=== PATIENT | male | born 1950 | race Caucasian/White ===

== ENCOUNTER 2019-10-26 07:59 | Day surgery (SDC) | payer OTHER ==
--- OUTSIDE RECORDS SUMMARY | 2019-10-26 08:02 | XMS REPORT | Clinical Summary ---
:1950 Author Organization [facility] Address [address] [place] [id number] Care Team Providers Name Role Phone Elias Primary Care Provider Allergies No Known Allergies Medications Medication Sig Dispensed Refills Start Date End Date Status amLODIPine Take 10 mg by mouth 0 Active (NORVASC) 10 MG daily. tablet rosuvastatin Take 20 mg by mouth 0 Active (CRESTOR) 20 MG nightly. tablet losartan (COZAAR) Take 50 mg by mouth 0 Active 50 MG tablet daily. carvedilol (COREG) Take 3.125 mg by 0 Active 3.125 MG tablet mouth 2 (two) times daily with breakfast and dinner. tamsulosin (FLOMAX) Take 0.4 mg by mouth 0 Active 0.4 mg Cp24 24 hr nightly. capsule apixaban (ELIQUIS) Take 2.5 mg by mouth 0 Active 2.5 mg Tab tablet 2 (two) times daily. enoxaparin Inject 0.4 mLs (40 mg 7 Syringe 0 05/31/2016 Active (LOVENOX) 40 mg/0.4 total) subcutaneously mL Syrg daily. loratadine Take 10 mg by mouth 0 Active (CLARITIN) 10 mg daily as needed for tablet Allergies. multivitamin per Take 1 tablet by 0 Active tablet mouth daily. Active Problems Problem Noted Date Abdominal pain 06/05/2016 Hematuria 06/05/2016 Right renal mass 05/28/2016 Social History Tobacco Use Types Packs/Day Years Used Date Never Smoker Smokeless Tobacco: Never Used Alcohol Use Drinks/Week oz/Week Comments No Sex Assigned at Date Recorded Not on file Job Start Date Occupation Industry Not on file Not on file Not on file Travel History Travel Start Travel End No recent travel history available. Last Filed Vital Signs Not on file Plan of Treatment Not on file Results Not on fileafter 10/25/2018 Insurance Payer Benefit Plan / Group Subscriber ID Type Phone A ddress MEDICARE MEDICARE A B xxxxxxxxxx Medicare OTHER-COMMERCIAL GENERIC COMMERCIAL xxxxxxxxx Advance Directives For more information, please contact:[address] [phone] Code Status Date Activated Date Inactivated Comments Full Code 06/05/2016 1:34 AM 06/07/2016 10:11 PM This code status was determined by: Patient Full Code 05/28/2016 6:20 PM 05/31/2016 11:40 PM This code status was determined by: Patient
--- OUTSIDE RECORDS SUMMARY | 2019-10-26 08:02 | XMS REPORT | Clinical Summary ---
:1950 Author Organization [facility] Address [address] [place] [address] Care Team Providers Name Role Phone Huan Lipscomb MD Primary Care Provider Allergies No Known Allergies Medications Medication Sig Dispensed Refills Start Date End Date Status amLODIPine (NORVASC) 10 mg 0 04/08/2016 Active tablet apixaban (ELIQUIS) 2.5 mg Take by 0 Active tablet mouth. carvedilol (COREG) 3.125 Take 3.125 0 Active MG tablet mg by mouth. rosuvastatin (CRESTOR) 20 Take 20 mg 0 Active MG tablet by mouth. tamsulosin (FLOMAX) 0.4 mg Take by 0 Active capsule,extended release mouth. 24hr losartan (COZAAR) 50 MG Take 50 mg 0 Active tablet by mouth. hydroCHLOROthiazide Take 12.5 mg 0 Active (HYDRODIURIL) 12.5 MG by mouth tablet daily. aspirin (ECOTRIN) 81 MG Take 81 mg 0 Active enteric coated tablet by mouth daily. warfarin (COUMADIN) 7.5 MG 0 01/28/2016 Active tablet pantoprazole (PROTONIX) 40 Take 40 mg 0 Active MG EC tablet by mouth. XIIDRA 5 % dropperette 0 06/16/2018 Active oxybutynin XL (DITROPAN Take 1 90 tablet 3 08/04/201808/03 XL) 5 MG 24 hr tablet tablet (5 mg total) by mouth daily. Active Problems Problem Noted Date Malignant neoplasm of prostate 04/22/2017 Prostate cancer 04/07/2017 Cancer Staging: Pathologic stage from : pT2, pN0, cM0 - Signed by Pantera Funes MD on 05/16/2017 Encounters Date Type Specialty Care Team Description 09/11/2019 Telephone Urology Beatriz Perry MA 09/04/2019 Office Visit Urology Pantera Funes MD Prostate cancer (HCC) (Primary Dx) 09/04/2019 Travel 07/16/2019 Telephone Urology Pantera Funes MD after 10/25/2018 Social History Tobacco Use Types Packs/Day Years [...] Signs Not on file Plan of Treatment Date Type Specialty Care Team Description 09/02/2020 Office Visit Urology Pantera Funes MD [address] [facility] [address] [place], [place] [address] [phone] Health Maintenance Due Date Last Done Comments COLONOSCOPY SCREENING 08/01/1999 SHINGLES VACCINES (#1) 08/01/1999 65+ PNEUMOCOCCAL VACCINE (1 of 2 - PCV13) 2014 INFLUENZA VACCINE 12/06/2019 Implants Implanted Type Area Retanner Device Shelf Model / Identifier Expiration Serial / Date Lot Kit Selnt Fibrin Humn Hmsts Surgy 5ml Evicel - [id number] Surgica l N/A: N/A ETHICON US-EH [id number] / Implanted: Qty: 1 on 04/22/2017 by Pantera Funes MD at [facility] Implants; / Expanders; Extenders; Surgical Wires Tip Flxibl Selnt Fibrin Clog-Resistant 45cm Evicel - [id number] Surgical N/A: N/A ETHICON US-EH 09/04/2019 [id number] / Implanted: Qty: 1 on 04/22/2017 by Pantera Funes MD at [facility] Implants; / Expanders; [id number] Extenders; Surgical Wires Clip Ligtng Hem-O-Michele Endoscpc Aplr [facility] Lg - [id number] Surgica l N/A: N/A WECK CLOSURE [id number] / Implanted: Qty: 3 on 04/22/2017 by Pantera Funes MD at [facility] Implants; SYSTEMS / Expanders; Extenders; Surgical Wires Procedures Procedure Name Priority Date/Time Associated Comments Diagnosis PSA, ULTRASENSITIVE Routine 09/04/2019 4:02 PM Prostate cance r Results for this CDT (HCC) procedure are i n the results section. after 10/25/2018 Results PSA, ultrasensitive (09/04/2019 4:02 PM CDT) PSA, ultrasensitive <0.014 0.000 - 4.000 [facility] Comment: ng/mL Gloria ECLIA methodology. According to the [employer], Seru m PSA should decrease and remain at undetectable levels after radic al prostatectomy. The AUA defines biochemical recurrence as an initial PSA value 0.200 ng/mL or greater followed by a subsequ ent confirmatory PSA value 0.200 ng/mL or greater. Values obtained with different assay methods or kits c annot be used interchangeably. Results cannot be interpreted as abso lute evidence of the presence or absence of malignant disease. Specimen Blood Narrative Performed At Performed at: 01 - [facility] [address], [place] [id number] 143 Corporate Travel Consultant: Petros Reno MD, Phone: [phone] Performing Organization Address City/State/Zipcode Phone Number [facility] after 10/25/2018 Insurance Payer Benefit Plan / Subscriber ID Effective Phone Address T ype Group Dates MEDICARE MEDICARE PART A xxxxxxxxxxx 2014-[place], [place] Medicare AND B ent COMMERCIAL MISC MISC COMMERCIAL [id number] 2016-[facility] Commercial ent (Home) [id number] [place] [address] Advance Directives For more information, please contact: [phone] Type Date 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
--- OUTSIDE RECORDS SUMMARY | 2019-10-26 08:04 | XMS REPORT | Continuity of Care Document ---
:1950 Author Organization [facility] t Address [address] [place] [address] Care Team Providers Name Role Phone Jeremiah Lipscomb MD. Primary Care Physician Doctor Unassigned, Name Attending Clinician Unavailable Orlando WOODSON Attending Clinician Unavailable Fabiola GUILLEN, J. Attending Clinician Mack GUILLEN Attending Clinician BARRY RAMOS Attending Clinician Unavailable CONI ALARCON Attending Clinician Unavailable FARA ANN Admitting Clinician Unavailable LINKCONI Admitting Clinician Unavailable Payers Payer Name Policy Policy Number Effective Expiration Source Type Date Date MEDICAREMEDICARE PART xxxxxxxxxxx 2014 Taiwo claude Pandya AND 00:00:00 [facility]xxx[facility] [place] [facility] [place] COMMERCIAL MISCMISC [id number] 2016 [place] JPAIDHKUZAaoj-fj-cosy 00:00:00 Met nielsen 2016-Ryan rcial Problems Condition Condition Condition Status Onset Resolution Last Treating Co mments Source Name Details Category Date Date Treatment Clinician Date Malignant Malignant Disease Active Francoise ston neoplasm neoplasm 04-22 [facility] of of 00:00: st prostate prostate 00 Prostate Prostate Disease Active [place] [facility] cancer 2 [facility] 00[facility]: st 00 Abdominal Abdominal Disease Active [facility] Hematuria Hematuria Disease Active [facility] [place] Right Right Disease Active [facility] renal mass renal mass 3- [facility] - 00:00: Medical 00 [place] Allergies, Adverse Reactions, Alerts This patient has no known allergies or adverse reactions. Social History Social Habit Start Date Stop Date Quantity Comments Source Sex Assigned At [facility] Alcohol intake 2018-08-24 2018-08-24 Current [facility] thodist 00:00:00 00:00:00 non-drinker of alcohol (finding) Smoking Status Start Date Stop Date Source Never smoker [facility] Medications Ordered Filled Start Stop Current Ordering Indication Dosage Frequency Signature Comments Components Source Medication Medication Date Date Medication? Clinician (SIG) Name Name apixaban Yes Take by [place] (ELIQUIS) 6-20 mouth. [facility]i 2.5 mg 10:52: st tablet 23 carvedilol Yes 3.125mg Take 3.125 Ca (COREG) 6-20 mg by [facility] 3.125 MG 10:52: mouth. st tablet 23 rosuvastati Yes 20mg Take 20 mg Ca n (CRESTOR) 6-20 by mouth. Met hodi 20 MG 10:52: st tablet 23 tamsulosin Yes Take by [place] (FLOMAX) 6-20 mouth. [facility] 0.4 mg 10:52: st capsule,ext 23 ended release 24hr losartan Yes 50mg Take 50 mg Francoise ston (COZAAR) 50 6-20 by mouth. Met hodi MG tablet 10:52: st 23 hydroCHLORO Yes 12.5mg QD Take 12.5 Ca thiazide 6-20 mg by [facility] (HYDRODIURI 10:52: mouth st L) 12.5 MG 23 daily. tablet aspirin Yes 81mg QD Take 81 mg [place] (ECOTRIN) 6-20 by mouth Method i 81 MG 10:52: daily. st enteric 23 coated tablet pantoprazol Yes 40mg Take 40 mg Ca e 6-20 by mouth. [facility]i (PROTONIX) 10:52: st 40 MG EC 23 tablet oxybutynin 2020- No 5mg QD Take 1 [place] XL 5-31 05-30 tablet (5 [facility] (DITROPAN 00:00: 23:59 mg total) st XL) 5 MG 24 00 :00 by mouth hr tablet daily. XIIDRA 5 % Yes Ca dropperette 4-12 Methodi 00:00: st 00 loratadine Yes 10mg Take [address] (CLARITIN) 4- by mouth [facility] - 10 mg 02:12: daily as Medical tablet 49 needed for Center Allergies. multivitami Yes 1{tbl} QD Take [address] n per 06-05 tablet by [facility] - tablet 02:12: mouth Medical 49 daily. [place] enoxaparin Yes 40mg Q24H Inject 0.[address] (LOVENOX) 3-27 mLs (40 mg Luke s - 40 mg/0.4 00:00: total) Medica l mL Syrg 00 subcutaneo Center usly daily. losartan Yes 50mg QD Take [address] (COZAAR) 50 3-10 by mouth Luke s - MG tablet 10:39: daily. Medica l 10 [place] carvedilol Yes 3.125mg Take 3.[address] [facility] [address] (COREG) 3-10 mg by [facility] - 3.125 MG 10:39: mouth 2 Medica l tablet 10 (two) Center times daily with breakfast and dinner. tamsulosin Yes .4mg QD Take 0.[address] (FLOMAX) 3-10 mg by [facility] - 0.4 mg Cp24 10:39: mouth Medic al 24 hr 10 nightly. Center capsule apixaban Yes 2.5mg Q.5D Take 2.[address] (ELIQUIS) 3-10 mg by [facility] - 2.5 mg Tab 10:39: mouth 2 Medi kevon tablet 10 (two) Center times daily. rosuvastati Yes 20mg QD Take [address] n (CRESTOR) 3-10 by mouth Luke s - 20 MG 10:39: nightly. Medical tablet 09 [place] amLODIPine Yes 10mg QD Take [address] (NORVASC) 3-10 by mouth [facility] - 10 MG 10:35: daily. Medical tablet 15 [place] amLODIPine Yes Ca (NORVASC) 2-02 Methodi 10 mg 00:00: st tablet 00 warfarin 2015-03 Yes Ca (COUMADIN) 1-23 Methodi 7.5 MG 00:00: st tablet 00 Procedures Procedure Date / Time Performed Performing Clinician Josr an PSA, ULTRASENSITIVE 2019-09-04 16:02:00 Meghan Funes Plan of Care Planned Activity Planned Date Details Comments Source Future Scheduled 2019-12-06 INFLUENZA VACCINE [place] [facility] 00:00:00 [code = INFLUENZA VACCINE] Future Scheduled 2014 65+ PNEUMOCOCCAL [place] [facility] 00:00:00 VACCINE (1 of 2 - PCV13) [code = 65+ PNEUMOCOCCAL VACCINE (1 of 2 - PCV13)] Future Scheduled 1999-08-01 COLONOSCOPY SCREENING [facility] Test 00:00:00 [code = COLONOSCOPY SCREENING] Future Scheduled 1999-08-01 SHINGLES VACCINES (#1) [place] [facility] 00:00:00 [code = SHINGLES VACCINES (#1)] Encounters Start End Encounter Admission Attending Care Care Encounter Source Date/Time Date/Time Type Type Clinicians Facility Department ID 2019-09-11 2019-09-11 Orders Doctor HELTON [id number] 00:00:00 00:00:00 Only Unassigned, MANE [id number] [place] [id number] [id number] 2019-09-04 2019-09-04 Outpatient [facility] [id number] [address] [place] 00:00:00 00:00:00 MEGHAN Macdonald [facility] 2019-04-04 2019-04-04 Orders Doctor HELTON [id number] 00:00:00 00:00:00 Only UnassignedMANE [id number] [place] [facility] [id number] [id number] 2019-03-27 2019-03-27 Telephone CYNTHIA Giron [id number] 00:00:00 00:00:00 [facility] [id number] [place] [id number] Professio [id number] nal [address] 2018-09-20 2018-09-20 Orders Doctor HELTON [id number] 00:00:00 00:00:00 Only Unassigned, MANE [id number] [place] [facility] [id number] Results Test Description Test Time Test Comments Results Result Comments Source PSA, ultrasensitive 2019-09-05 10:10:00 Test Item Value Reference Range Interpretation Comme nts PSA, ultrasensitive (test <0.014 0-4 Ro eleazar ECLIA methodology.According code = 11336-8) to the [facility] Urological Association, Se rum PSA shoulddecrease and remain at undetectable le vels after radicalprostate ctomy. The AUA defines biochem ical recurrence as an initialPSA v alue 0.200 ng/mL or greater foll owed by a subsequentconfi rmatory PSA value 0.200 ng/mL or greater.Values obtained with d ifferent assay methods or kits cannot be usedinterchange ably. Results cannot be inter preted as absolute evidenceof the presence or absence of ezequiel gnant disease. SURENDRA (test code = SURENDRA) Performed at: [facility] [id number] Director: Petros Reno MD, Phone: [phone] [place] MethodistHEMOGLOBIN AND [id number] 07:06:00 Test Item Value Reference Range Interpretation Comments HEMOGLOBIN (BEAKER) (test code = 8.7 GM/DL 13.0-16.8 L 410) HEMATOCRIT (BEAKER) (test code = 26.5 % 40.0-50.0 L 411) BASIC METABOLIC [id number] 06:42:00 Test Item Value Reference Range Interpretation Comments SODIUM (BEAKER) 137 meq/L 136-145 (test code = 381) POTASSIUM (BEAKER) 3.4 meq/L 3.5-5.1 L (test code = 379) CHLORIDE (BEAKER) 106 meq/L 98-107 (test code = 382) CO2 (BEAKER) (test 22 meq/L 22-29 code = 355) BLOOD UREA NITROGEN 11 mg/dL 7-21 (BEAKER) (test code = 354) CREATININE (BEAKER) 1.27 mg/dL 0.57-1.25 H (test code = 358) GLUCOSE RANDOM 121 mg/dL 70-105 H (BEAKER) (test code = 652) CALCIUM (BEAKER) 8.1 mg/dL 8.4-10.2 L (test code = 697) EGFR (BEAKER) (test 57 mL/min/1.73 [place] GFR IS code = 1092) sq m NOT ACCURATE CREATININE CLEARANCE IN PREDICTING GLOMERULAR FILTRATION RATE . ESTIMATED GFR I S NOT APPLICABLE FOR DIALYSIS PATIEN TS. HEMOGLOBIN AND [id number] 17:34:00 Test Item Value Reference Range Interpretation Comments HEMOGLOBIN (BEAKER) (test code = 8.7 GM/DL 13.0-16.8 L 410) HEMATOCRIT (BEAKER) (test code = 24.8 % 40.0-50.0 L 411) URINE [id number] 13:17:00 Test Item Value Reference Range Interpretation Comments CULTURE (BEAKER) (test code = 1095) No growth BASIC METABOLIC [id number] 06:13:00 Test Item Value Reference Range Interpretation Comments SODIUM (BEAKER) 139 meq/L 136-145 (test code = 381) POTASSIUM (BEAKER) 3.9 meq/L 3.5-5.1 (test code = 379) CHLORIDE (BEAKER) 108 meq/L 98-107 H (test code = 382) CO2 (BEAKER) (test 24 meq/L 22-29 code = 355) BLOOD UREA NITROGEN 15 mg/dL 7-21 (BEAKER) (test code = 354) CREATININE (BEAKER) 1.79 mg/dL 0.57-1.25 H (test code = 358) GLUCOSE RANDOM 107 mg/dL 70-105 H (BEAKER) (test code = 652) CALCIUM (BEAKER) 8.1 mg/dL 8.4-10.2 L (test code = 697) EGFR (BEAKER) (test 38 mL/min/1.73 [place] GFR IS code = 1092) sq m NOT ACCURATE CREATININE CLEARANCE IN PREDICTING GLOMERULAR FILTRATION RATE . ESTIMATED GFR I S NOT APPLICABLE FOR DIALYSIS PATIEN TS. HEMOGLOBIN AND [id number] 05:55:00 Test Item Value Reference Range Interpretation Comments HEMOGLOBIN (BEAKER) (test code = 7.6 GM/DL 13.0-16.8 L 410) HEMATOCRIT (BEAKER) (test code = 22.5 % 40.0-50.0 L 411) HEMOGLOBIN AND [id number] 15:49:00 Test Item Value Reference Range Interpretation Comments HEMOGLOBIN (BEAKER) (test code = 8.3 GM/DL 13.0-16.8 L 410) HEMATOCRIT (BEAKER) (test code = 24.5 % 40.0-50.0 L 411) BLOOD [id number] 11:00:00 Test Item Value Reference Range Interpretation Comments CULTURE (BEAKER) (test No growth in 5 days code = 1095) BLOOD [id number] 11:00:00 Test Item Value Reference Range Interpretation Comments CULTURE (BEAKER) (test No growth in 5 days code = 1095) BASIC METABOLIC [id number] 07:19:00 Test Item Value Reference Range Interpretation Comments SODIUM (BEAKER) 142 meq/L 136-145 (test code = 381) POTASSIUM (BEAKER) 3.6 meq/L 3.5-5.1 (test code = 379) CHLORIDE (BEAKER) 108 meq/L 98-107 H (test code = 382) CO2 (BEAKER) (test 24 meq/L 22-29 code = 355) BLOOD UREA NITROGEN 13 mg/dL 7-21 (BEAKER) (test code = 354) CREATININE (BEAKER) 1.30 mg/dL 0.57-1.25 H (test code = 358) GLUCOSE RANDOM 104 mg/dL 70-105 (BEAKER) (test code = 652) CALCIUM (BEAKER) 8.3 mg/dL 8.4-10.2 L (test code = 697) EGFR (BEAKER) (test 55 mL/min/1.73 [place] GFR IS code = 1092) sq m NOT ACCURATE CREATININE CLEARANCE IN PREDICTING GLOMERULAR FILTRATION RATE . ESTIMATED GFR I S NOT APPLICABLE FOR DIALYSIS PATIEN TS. [id number] 07:14:00 Test Item Value Reference Range Interpretation Comments PARTIAL THROMBOPLASTIN TIME 45.4 seconds 22.5-36.0 H (BEAKER) (test code = 760) HEMOGLOBIN AND [id number] 07:14:00 Test Item Value Reference Range Interpretation Comments HEMOGLOBIN (BEAKER) (test code = 8.0 GM/DL 13.0-16.8 L 410) HEMATOCRIT (BEAKER) (test code = 23.3 % 40.0-50.0 L 411) URINALYSIS W/ [id number] 01:39:00 Test Item Value Reference Range Interpretation Comments COLOR (BEAKER) (test code Red = 470) CLARITY (BEAKER) (test Cloudy code = 469) SPECIFIC GRAVITY UA 1.008 1.001-1.035 (BEAKER) (test code = 468) PH UA (BEAKER) (test code 7.5 5.0-8.0 = 467) PROTEIN UA (BEAKER) (test 300 mg/dL Negative A code = 464) GLUCOSE UA (BEAKER) (test Negative Negative code = 365) KETONES UA (BEAKER) (test Negative Negative code = 371) BILIRUBIN UA (BEAKER) Negative Negative (test code = 462) BLOOD UA (BEAKER) (test Large Negative A code = 461) NITRITE UA (BEAKER) (test Negative Negative code = 465) LEUKOCYTE ESTERASE UA Negative Negative (BEAKER) (test code = 466) UROBILINOGEN UA (BEAKER) 0.2 mg/dL 0.2-1.0 (test code = 463) RBC UA (BEAKER) (test code > /HPF = 519) WBC UA (BEAKER) (test code 111 /HPF = 520) SOURCE(BEAKER) (test code Urine, Clean Catch = 0422) EXTREMELY BLOODY SPECIMENBASIC METABOLIC [id number] 00:32:00 Test Item Value Reference Range Interpretation Comments SODIUM (BEAKER) 140 meq/L 136-145 (test code = 381) POTASSIUM (BEAKER) 4.0 meq/L 3.5-5.1 Specimen slightly (test code = 379) hemolyzed CHLORIDE (BEAKER) 104 meq/L 98-107 (test code = 382) CO2 (BEAKER) (test 21 meq/L 22-29 L code = 355) BLOOD UREA NITROGEN 14 mg/dL 7-21 (BEAKER) (test code = 354) CREATININE (BEAKER) 1.44 mg/dL 0.57-1.25 H Specimen slightly (test code = 358) hemolyzed GLUCOSE RANDOM 113 mg/dL 70-105 H (BEAKER) (test code = 652) CALCIUM (BEAKER) 8.7 mg/dL 8.4-10.2 (test code = 697) EGFR (BEAKER) (test 49 mL/min/1.73 [place] GFR IS code = 1092) sq m NOT ACCURATE CREATININE CLEARANCE IN PREDICTING GLOMERULAR FILTRATION RATE . ESTIMATED GFR I S NOT APPLICABLE FOR DIALYSIS PATIEN TS. [id number] 00:27:00 Test Item Value Reference Range Interpretation Comments PARTIAL THROMBOPLASTIN TIME 39.7 seconds 22.5-36.0 H (BEAKER) (test code = 760) PROTHROMBIN [id number] 00:26:00 Test Item Value Reference Range Interpretation Comments PROTIME (BEAKER) (test code = 13.7 seconds 11.7-14.7 759) INR (BEAKER) (test code = 370) 1.1 <=5.9 RECOMMENDED COUMADIN/WARFARIN INR THERAPY RANGESSTANDARD DOSE: 2.0 - 3.0 Includes: PROPHYLAXIS forvenous thrombosis, systemic embolization; TREATMENT for venous thrombosis and/or pulmonary embolus.HIGH RISK: Target INR is 2.5-3.5 for patients with mechanical heart valves.CBC W/PLT COUNT & AUTO DIFFERENTIAL 2016-06-05 00:19:00 Test Item Value Reference Range Interpretation Comments WHITE BLOOD CELL COUNT (BEAKER) 7.9 K/ L 4.0-10.0 (test code = 775) RED BLOOD CELL COUNT (BEAKER) 3.36 M/ L 4.20-5.80 L (test code = 761) HEMOGLOBIN (BEAKER) (test code = 9.8 GM/DL 13.0-16.8 L 410) HEMATOCRIT (BEAKER) (test code = 29.0 % 40.0-50.0 L 411) MEAN CORPUSCULAR VOLUME (BEAKER) 86.3 fL 82.0-98.0 (test code = 753) MEAN CORPUSCULAR HEMOGLOBIN 29.2 pg 27.0-33.0 (BEAKER) (test code = 751) MEAN CORPUSCULAR HEMOGLOBIN CONC 33.8 GM/DL 32.0-36.0 (BEAKER) (test code = 752) RED CELL DISTRIBUTION WIDTH 12.7 % 10.3-14.2 (BEAKER) (test code = 412) PLATELET COUNT (BEAKER) (test 392 K/CU MM 150-430 code = 756) MEAN PLATELET VOLUME (BEAKER) 6.9 fL 6.5-10.5 (test code = 754) NUCLEATED RED BLOOD CELLS 0 /100 WBC 0-0 (BEAKER) (test code = 413) NEUTROPHILS RELATIVE PERCENT 74 % (BEAKER) (test code = 429) LYMPHOCYTES RELATIVE PERCENT 14 % (BEAKER) (test code = 430) MONOCYTES RELATIVE PERCENT 7 % (BEAKER) (test code = 431) EOSINOPHILS RELATIVE PERCENT 5 % (BEAKER) (test code = 432) BASOPHILS RELATIVE PERCENT 0 % (BEAKER) (test code = 437) NEUTROPHILS ABSOLUTE COUNT 5.85 K/ L 1.80-8.00 (BEAKER) (test code = 670) LYMPHOCYTES ABSOLUTE COUNT 1.13 K/ L 1.48-4.50 L (BEAKER) (test code = 414) MONOCYTES ABSOLUTE COUNT (BEAKER) 0.52 K/ L 0.00-1.30 (test code = 415) EOSINOPHILS ABSOLUTE COUNT 0.38 K/ L 0.00-0.50 (BEAKER) (test code = 416) BASOPHILS ABSOLUTE COUNT (BEAKER) 0.02 K/ L 0.00-0.20 (test code = 417) 0.00URINE [id number] 10:01:00 Test Item Value Reference Interpretation Comments Range CULTURE (BEAKER) (test ENTEROBACTER A 20-29 ,000 col/mL code = 1095) AEROGENES Enterobacter aerogenes Amikacin (test code = S 1) Aztreonam (test code = R 32) Cefepime (test code = S 51) Cefoxitin (test code = R 68) Ceftazidime (test code R = 27) Ceftriaxone (test code R = 52) Ertapenem (test code = S 38) Gentamicin (test code S = 18) Levofloxacin (test S code = 22) Meropenem (test code = S 34) Nitrofurantoin (test R code = 23) Piperacillin + R Tazobactam (test code = 29) Tetracycline (test R code = 2) Tobramycin (test code S = 25) Trimethoprim + S Sulfamethoxazole (test code = 47) TISSUE [id number] 13:16:00Surgical Pathology Report Case: [id number] --- Authorizing Provider: Meño Alarcon MD Ordering Provider: Meño Alarcon MD [facility] Collected: 05/28/2016 1124 SERVICES Pathologist: Emiliano Dumont MD Received: 05/28/2016 1128 Specimens: A) - Soft Tissue, Other, biopsy base of tumor resection B) - Mass,right renal mass A. SOFT TISSUE, BASE OF TUMOR RESECTION, BIOPSY: - NEGATIVE FOR CARCINOMAB. KIDNEY, PARTIAL NEPHRECTOMY: - RENAL CELL CARCINOMA, CLEAR CELL TYPE, SHAYNE NUCLEAR GRADE 3 OF 4, 5 CM IN GREATEST DIMENSION, LIMITED TO KIDNEY - SURGICAL RESECTION MARGINS, NEGATIVE FOR TUMOR - NEGATIVE FOR LYMPHOVASCULAR INVASION - AJCC CLASSIFICATION (7TH EDITION) pT1b, Nx, Mx (SEE SYNOPTIC REPORT) Signing Pathologist Direct Phone Line: [phone] is within 0.1 cm from the capsular resection margin.KIDNEY: Nephrectomy,Partial or RadicalKidney Res Specimen Site: Kidney structureSPECIMEN Procedure: Partial nephrectomy Specimen Laterality: Right Tumor Site: Upper pole Tumor Focality: Unifocal MacroscopicExtent of Tumor: Tumor limited to kidneyTUMOR Histologic Type: Clear cell renal cell carcinomaSarcomatoid Features: Not identified Histologic Grade (Shayne Nuclear Grade): G3: Nuclei veryirregular, approximately 20 microns; nucleoli large and prominentEXTENT Tumor Size (largest tumor ifmultiple): Greatest dimension (cm): 5 Additional Dimension (cm): 4 Additional Dimension (cm): 3 Microscopic Tumor Extension: Tumor limited to kidneyMARGINS Margin Status: Margins uninvolved by invasive carcinomaACCESSORY FINDINGS Tumor Necrosis (any amount): Not identified Lymph-Vascular Invasion: Not identifiedSTAGE (pTNM) TNM Descriptors: Not applicable Primary Tumor (pT): pT1b: Tumor more than 4 cm but not more than 7 cm in greatest dimension, limited to the kidney Regional Lymph Nodes (pN): pNX: Regional lymph nodes cannot be assessed Status of Regional LymphNodes: No nodes submitted or found Distant Metastasis (pM): Not applicableADDITIONAL NON-TUMORPathologic Findings in Nonneoplastic Kidney: Insufficient tissue (partial nephrectomy specimen with <5 mm of adjacent non-neoplastic kidney)30489, [id number], 62884Hdawx renal massA. Soft tissue, biopsy base of tumor resectionB. Right renal massPart A: The specimen is received fresh for frozen labeled with the patient's name and accession number as "soft tissue" is a 0.6 x 0.5 x 0.2 cm [place]-pink softtissue. The specimen is submitted totally in cassette A1. SM/plPart B: The specimen is received in aformalin-filled container labeled with the patient's information and labeled "right renal mass" and consists of a 40 gm partial nephrectomy measuring 5 x 4 x 3 cm. The attached fat measures 5.2 x 4 x 1cm.Ink code: adipose tissue-black, remainder of kidney-blue.The specimen is serially sectioned. Cross sectioning of nephrectomy shows complete replacement of the kidney parenchyma with a null-yellow,hemorrhagic, multinodular tumor. The mass is grossly confined within the capsule and does not invadeinto the surrounding fat. Grossly no distinct viable kidney parenchyma is seen.Section code: B1-B3, r epresentative tumor and adjacent adipose tissue; B4-B6, account development representative tumor and capsule without adipose tissue. CG/ewBIOPSY BASE OF TUMOR RESECTION: A1FS: NEGATIVE FOR CARCINOMATHE RESULTS WERE REPORTED BY DR. DUMONT TO DR. ALARCON AT 11:47 A.M.A and B. Performed.CBC W/PLT COUNT & AUTO [id number] 13:52:00 Test Item Value Reference Range Interpretation Comments WHITE BLOOD CELL COUNT (BEAKER) 10.4 K/ L 4.0-10.0 H (test code = 775) RED BLOOD CELL COUNT (BEAKER) 3.13 M/ L 4.20-5.80 L (test code = 761) HEMOGLOBIN (BEAKER) (test code = 9.1 GM/DL 13.0-16.8 L 410) HEMATOCRIT (BEAKER) (test code = 27.3 % 40.0-50.0 L 411) MEAN CORPUSCULAR VOLUME (BEAKER) 87.4 fL 82.0-98.0 (test code = 753) MEAN CORPUSCULAR HEMOGLOBIN 29.2 pg 27.0-33.0 (BEAKER) (test code = 751) MEAN CORPUSCULAR HEMOGLOBIN CONC 33.4 GM/DL 32.0-36.0 (BEAKER) (test code = 752) RED CELL DISTRIBUTION WIDTH 13.4 % 10.3-14.2 (BEAKER) (test code = 412) PLATELET COUNT (BEAKER) (test 229 K/CU MM 150-430 code = 756) MEAN PLATELET VOLUME (BEAKER) 7.6 fL 6.5-10.5 (test code = 754) NUCLEATED RED BLOOD CELLS 0 /100 WBC 0-0 (BEAKER) (test code = 413) NEUTROPHILS RELATIVE PERCENT 83 % (BEAKER) (test code = 429) LYMPHOCYTES RELATIVE PERCENT 9 % (BEAKER) (test code = 430) MONOCYTES RELATIVE PERCENT 6 % (BEAKER) (test code = 431) EOSINOPHILS RELATIVE PERCENT 1 % (BEAKER) (test code = 432) BASOPHILS RELATIVE PERCENT 0 % (BEAKER) (test code = 437) NEUTROPHILS ABSOLUTE COUNT 8.67 K/ L 1.80-8.00 H (BEAKER) (test code = 670) LYMPHOCYTES ABSOLUTE COUNT 0.95 K/ L 1.48-4.50 L (BEAKER) (test code = 414) MONOCYTES ABSOLUTE COUNT (BEAKER) 0.61 K/ L 0.00-1.30 (test code = 415) EOSINOPHILS ABSOLUTE COUNT 0.15 K/ L 0.00-0.50 (BEAKER) (test code = 416) BASOPHILS ABSOLUTE COUNT (BEAKER) 0.02 K/ L 0.00-0.20 (test code = 417) 0.00CBC W/PLT COUNT & AUTO [id number] 05:52:00 Test Item Value Reference Range Interpretation Comments WHITE BLOOD CELL COUNT (BEAKER) 9.3 K/ L 4.0-10.0 (test code = 775) RED BLOOD CELL COUNT (BEAKER) 2.77 M/ L 4.20-5.80 L (test code = 761) HEMOGLOBIN (BEAKER) (test code = 8.4 GM/DL 13.0-16.8 L 410) HEMATOCRIT (BEAKER) (test code = 24.0 % 40.0-50.0 L 411) MEAN CORPUSCULAR VOLUME (BEAKER) 86.7 fL 82.0-98.0 (test code = 753) MEAN CORPUSCULAR HEMOGLOBIN 30.2 pg 27.0-33.0 (BEAKER) (test code = 751) MEAN CORPUSCULAR HEMOGLOBIN CONC 34.8 GM/DL 32.0-36.0 (BEAKER) (test code = 752) RED CELL DISTRIBUTION WIDTH 13.3 % 10.3-14.2 (BEAKER) (test code = 412) PLATELET COUNT (BEAKER) (test 171 K/CU MM 150-430 code = 756) MEAN PLATELET VOLUME (BEAKER) 7.4 fL 6.5-10.5 (test code = 754) NUCLEATED RED BLOOD CELLS 0 /100 WBC 0-0 (BEAKER) (test code = 413) NEUTROPHILS RELATIVE PERCENT 80 % (BEAKER) (test code = 429) LYMPHOCYTES RELATIVE PERCENT 11 % (BEAKER) (test code = 430) MONOCYTES RELATIVE PERCENT 8 % (BEAKER) (test code = 431) EOSINOPHILS RELATIVE PERCENT 1 % (BEAKER) (test code = 432) BASOPHILS RELATIVE PERCENT 0 % (BEAKER) (test code = 437) NEUTROPHILS ABSOLUTE COUNT 7.37 K/ L 1.80-8.00 (BEAKER) (test code = 670) LYMPHOCYTES ABSOLUTE COUNT 1.02 K/ L 1.48-4.50 L (BEAKER) (test code = 414) MONOCYTES ABSOLUTE COUNT (BEAKER) 0.74 K/ L 0.00-1.30 (test code = 415) EOSINOPHILS ABSOLUTE COUNT 0.12 K/ L 0.00-0.50 (BEAKER) (test code = 416) BASOPHILS ABSOLUTE COUNT (BEAKER) 0.02 K/ L 0.00-0.20 (test code = 417) 0.00BASIC METABOLIC [id number] 05:37:00 Test Item Value Reference Range Interpretation Comments SODIUM (BEAKER) 137 meq/L 136-145 (test code = 381) POTASSIUM (BEAKER) 3.7 meq/L 3.5-5.1 (test code = 379) CHLORIDE (BEAKER) 106 meq/L 98-107 (test code = 382) CO2 (BEAKER) (test 24 meq/L 22-29 code = 355) BLOOD UREA NITROGEN 15 mg/dL 7-21 (BEAKER) (test code = 354) CREATININE (BEAKER) 1.20 mg/dL 0.57-1.25 (test code = 358) GLUCOSE RANDOM 113 mg/dL 70-105 H (BEAKER) (test code = 652) CALCIUM (BEAKER) 7.9 mg/dL 8.4-10.2 L (test code = 697) EGFR (BEAKER) (test 61 mL/min/1.73 [place] [place] GFR IS code = 1092) sq m NOT ACCURATE CREATININE CLEARANCE IN PREDICTING GLOMERULAR FILTRATION RATE . ESTIMATED GFR I S NOT APPLICABLE FOR DIALYSIS PATIEN TS. BASIC METABOLIC [id number] 09:00:00 Test Item Value Reference Range Interpretation Comments SODIUM (BEAKER) 136 meq/L 136-145 (test code = 381) POTASSIUM (BEAKER) 3.8 meq/L 3.5-5.1 (test code = 379) CHLORIDE (BEAKER) 106 meq/L 98-107 (test code = 382) CO2 (BEAKER) (test 21 meq/L 22-29 L code = 355) BLOOD UREA NITROGEN 16 mg/dL 7-21 (BEAKER) (test code = 354) CREATININE (BEAKER) 1.24 mg/dL 0.57-1.25 (test code = 358) GLUCOSE RANDOM 115 mg/dL 70-105 H (BEAKER) (test code = 652) CALCIUM (BEAKER) 8.2 mg/dL 8.4-10.2 L (test code = 697) EGFR (BEAKER) (test 58 mL/min/1.73 [facility]IM[facility] [place] GFR IS code = 1092) sq m NOT ACCURATE CREATININE CLEARANCE IN PREDICTING GLOMERULAR FILTRATION RATE . ESTIMATED GFR I S NOT APPLICABLE FOR DIALYSIS PATIEN TS. CBC W/PLT COUNT & AUTO [id number] 08:56:00 Test Item Value Reference Range Interpretation Comments WHITE BLOOD CELL COUNT (BEAKER) 12.1 K/ L 4.0-10.0 H (test code = 775) RED BLOOD CELL COUNT (BEAKER) 3.08 M/ L 4.20-5.80 L (test code = 761) HEMOGLOBIN (BEAKER) (test code = 9.0 GM/DL 13.0-16.8 L 410) HEMATOCRIT (BEAKER) (test code = 26.9 % 40.0-50.0 L 411) MEAN CORPUSCULAR VOLUME (BEAKER) 87.2 fL 82.0-98.0 (test code = 753) MEAN CORPUSCULAR HEMOGLOBIN 29.2 pg 27.0-33.0 (BEAKER) (test code = 751) MEAN CORPUSCULAR HEMOGLOBIN CONC 33.4 GM/DL 32.0-36.0 (BEAKER) (test code = 752) RED CELL DISTRIBUTION WIDTH 12.8 % 10.3-14.2 (BEAKER) (test code = 412) PLATELET COUNT (BEAKER) (test 172 K/CU MM 150-430 code = 756) MEAN PLATELET VOLUME (BEAKER) 8.1 fL 6.5-10.5 (test code = 754) NUCLEATED RED BLOOD CELLS 0 /100 WBC 0-0 (BEAKER) (test code = 413) NEUTROPHILS RELATIVE PERCENT 84 % (BEAKER) (test code = 429) LYMPHOCYTES RELATIVE PERCENT 8 % (BEAKER) (test code = 430) MONOCYTES RELATIVE PERCENT 7 % (BEAKER) (test code = 431) EOSINOPHILS RELATIVE PERCENT 1 % (BEAKER) (test code = 432) BASOPHILS RELATIVE PERCENT 0 % (BEAKER) (test code = 437) NEUTROPHILS ABSOLUTE COUNT 10.20 K/ L 1.80-8.00 H (BEAKER) (test code = 670) LYMPHOCYTES ABSOLUTE COUNT 0.93 K/ L 1.48-4.50 L (BEAKER) (test code = 414) MONOCYTES ABSOLUTE COUNT (BEAKER) 0.89 K/ L 0.00-1.30 (test code = 415) EOSINOPHILS ABSOLUTE COUNT 0.08 K/ L 0.00-0.50 (BEAKER) (test code = 416) BASOPHILS ABSOLUTE COUNT (BEAKER) 0.03 K/ L 0.00-0.20 (test code = 417) 0.00HEMOGLOBIN AND [id number] 16:36:00 Test Item Value Reference Range Interpretation Comments HEMOGLOBIN (BEAKER) (test code = 9.1 GM/DL 13.0-16.8 L 410) HEMATOCRIT (BEAKER) (test code = 27.2 % 40.0-50.0 L 411) HEMOGLOBIN AND [id number] 07:37:00 Test Item Value Reference Range Interpretation Comments HEMOGLOBIN (BEAKER) (test code = 9.6 GM/DL 13.0-16.8 L 410) HEMATOCRIT (BEAKER) (test code = 28.5 % 40.0-50.0 L 411) BASIC METABOLIC [id number] 05:56:00 Test Item Value Reference Range Interpretation Comments SODIUM (BEAKER) 141 meq/L 136-145 (test code = 381) POTASSIUM (BEAKER) 3.9 meq/L 3.5-5.1 (test code = 379) CHLORIDE (BEAKER) 109 meq/L 98-107 H (test code = 382) CO2 (BEAKER) (test 21 meq/L 22-29 L code = 355) BLOOD UREA NITROGEN 17 mg/dL 7-21 (BEAKER) (test code = 354) CREATININE (BEAKER) 1.53 mg/dL 0.57-1.25 H (test code = 358) GLUCOSE RANDOM 147 mg/dL 70-105 H (BEAKER) (test code = 652) CALCIUM (BEAKER) 8.3 mg/dL 8.4-10.2 L (test code = 697) EGFR (BEAKER) (test 46 mL/min/1.73 [place] GFR IS code = 1092) sq m NOT ACCURATE CREATININE CLEARANCE IN PREDICTING GLOMERULAR FILTRATION RATE . ESTIMATED GFR I S NOT APPLICABLE FOR DIALYSIS PATIEN TS. Before arterial line is discontinuedBASI METABOLIC [id number] 14:08:00 Test Item Value Reference Range Interpretation Comments SODIUM (BEAKER) 138 meq/L 136-145 (test code = 381) POTASSIUM (BEAKER) 3.9 meq/L 3.5-5.1 (test code = 379) CHLORIDE (BEAKER) 108 meq/L 98-107 H (test code = 382) CO2 (BEAKER) (test 22 meq/L 22-29 code = 355) BLOOD UREA NITROGEN 15 mg/dL 7-21 (BEAKER) (test code = 354) CREATININE (BEAKER) 1.39 mg/dL 0.57-1.25 H (test code = 358) GLUCOSE RANDOM 140 mg/dL 70-105 H (BEAKER) (test code = 652) CALCIUM (BEAKER) 7.7 mg/dL 8.4-10.2 L (test code = 697) EGFR (BEAKER) (test 51 mL/min/1.73 [place] GFR IS code = 1092) sq m NOT ACCURATE CREATININE CLEARANCE IN PREDICTING GLOMERULAR FILTRATION RATE . ESTIMATED GFR I S NOT APPLICABLE FOR DIALYSIS PATIEN TS. Upon arrival to PACUHEMOGLOBIN AND [id number] 13:04:00 Test Item Value Reference Range Interpretation Comments HEMOGLOBIN (BEAKER) (test code = 9.5 GM/DL 13.0-16.8 L 410) HEMATOCRIT (BEAKER) (test code = 26.9 % 40.0-50.0 L 411) URINE [id number] 12:55:00 Test Item Value Reference Range Interpretation Comments CULTURE (BEAKER) (test 10-19,000 col/mL skin code = 1095) azra URINALYSIS W/ [id number] 12:25:00 Test Item Value Reference Range Interpretation Comments COLOR (BEAKER) (test code = 470) Yellow CLARITY (BEAKER) (test code = 469) Hazy SPECIFIC GRAVITY UA (BEAKER) (test 1.019 1.001-1.035 code = 468) PH UA (BEAKER) (test code = 467) 5.5 5.0-8.0 PROTEIN UA (BEAKER) (test code = 30 mg/dL Negative A 464) GLUCOSE UA (BEAKER) (test code = Negative Negative 365) KETONES UA (BEAKER) (test code = Negative Negative 371) BILIRUBIN UA (BEAKER) (test code = Negative Negative 462) BLOOD UA (BEAKER) (test code = 461) Negative Negative NITRITE UA (BEAKER) (test code = Negative Negative 465) LEUKOCYTE ESTERASE UA (BEAKER) Negative Negative (test code = 466) UROBILINOGEN UA (BEAKER) (test code 0.2 mg/dL 0.2-1.0 = 463) RBC UA (BEAKER) (test code = 519) 0 /HPF WBC UA (BEAKER) (test code = 520) 3 /HPF BACTERIA (BEAKER) (test code = 517) Rare MUCUS (BEAKER) (test code = 1574) Many SQUAMOUS EPITHELIAL (BEAKER) (test 1 /HPF code = 516) HYALINE CASTS (BEAKER) (test code = 40 /LPF 514) SOURCE(BEAKER) (test code = 8563) BASIC METABOLIC [id number] 11:46:00 Test Item Value Reference Range Interpretation Comments SODIUM (BEAKER) 141 meq/L 136-145 (test code = 381) POTASSIUM (BEAKER) 4.0 meq/L 3.5-5.1 (test code = 379) CHLORIDE (BEAKER) 106 meq/L 98-107 (test code = 382) CO2 (BEAKER) (test 28 meq/L 22-29 code = 355) BLOOD UREA NITROGEN 20 mg/dL 7-21 (BEAKER) (test code = 354) CREATININE (BEAKER) 1.51 mg/dL 0.57-1.25 H (test code = 358) GLUCOSE RANDOM 94 mg/dL 70-105 (BEAKER) (test code = 652) CALCIUM (BEAKER) 9.1 mg/dL 8.4-10.2 (test code = 697) EGFR (BEAKER) (test 46 mL/min/1.73 [place] GFR IS code = 1092) sq m NOT ACCURATE CREATININE CLEARANCE IN PREDICTING GLOMERULAR FILTRATION RATE . ESTIMATED GFR I S NOT APPLICABLE FOR DIALYSIS PATIEN TS. CBC W/PLT COUNT & AUTO [id number] 11:35:00 Test Item Value Reference Range Interpretation Comments WHITE BLOOD CELL COUNT (BEAKER) 5.4 K/ L 4.0-10.0 (test code = 775) RED BLOOD CELL COUNT (BEAKER) 3.86 M/ L 4.20-5.80 L (test code = 761) HEMOGLOBIN (BEAKER) (test code = 11.6 GM/DL 13.0-16.8 L 410) HEMATOCRIT (BEAKER) (test code = 33.1 % 40.0-50.0 L 411) MEAN CORPUSCULAR VOLUME (BEAKER) 85.9 fL 82.0-98.0 (test code = 753) MEAN CORPUSCULAR HEMOGLOBIN 30.0 pg 27.0-33.0 (BEAKER) (test code = 751) MEAN CORPUSCULAR HEMOGLOBIN CONC 34.9 GM/DL 32.0-36.0 (BEAKER) (test code = 752) RED CELL DISTRIBUTION WIDTH 12.6 % 10.3-14.2 (BEAKER) (test code = 412) PLATELET COUNT (BEAKER) (test 247 K/CU MM 150-430 code = 756) MEAN PLATELET VOLUME (BEAKER) 7.1 fL 6.5-10.5 (test code = 754) NUCLEATED RED BLOOD CELLS 0 /100 WBC 0-0 (BEAKER) (test code = 413) NEUTROPHILS RELATIVE PERCENT 72 % (BEAKER) (test code = 429) LYMPHOCYTES RELATIVE PERCENT 20 % (BEAKER) (test code = 430) MONOCYTES RELATIVE PERCENT 6 % (BEAKER) (test code = 431) EOSINOPHILS RELATIVE PERCENT 2 % (BEAKER) (test code = 432) BASOPHILS RELATIVE PERCENT 0 % (BEAKER) (test code = 437) NEUTROPHILS ABSOLUTE COUNT 3.86 K/ L 1.80-8.00 (BEAKER) (test code = 670) LYMPHOCYTES ABSOLUTE COUNT 1.06 K/ L 1.48-4.50 L (BEAKER) (test code = 414) MONOCYTES ABSOLUTE COUNT (BEAKER) 0.33 K/ L 0.00-1.30 (test code = 415) EOSINOPHILS ABSOLUTE COUNT 0.10 K/ L 0.00-0.50 (BEAKER) (test code = 416) BASOPHILS ABSOLUTE COUNT (BEAKER) 0.02 K/ L 0.00-0.20 (test code = 417) [id number] 11:35:00 Test Item Value Reference Range Interpretation Comments PARTIAL THROMBOPLASTIN TIME 34.1 seconds 22.5-36.0 (BEAKER) (test code = 760) PROTHROMBIN [id number] 11:34:00 Test Item Value Reference Range Interpretation Comments PROTIME (BEAKER) (test code = 13.5 seconds 11.7-14.7 759) INR (BEAKER) (test code = 370) 1.0 <=5.9 RECOMMENDED COUMADIN/WARFARIN INR THERAPY RANGESSTANDARD DOSE: 2.0 - 3.0 Includes: PROPHYLAXIS forvenous thrombosis, systemic embolization; TREATMENT for venous thrombosis and/or pulmonary embolus.HIGH RISK: Target INR is 2.5-3.5 for patients with mechanical heart valves.NM BONE SCAN WHOLE BODYCLINICAL INDICATION: dx: c61, prostate ca, asymptomatic, no broken bones or trauma beforeMODALITY: [employer] dual head gamma cameraTECHNIQUE: 25 mCi Tc 99m MDP are injected IV. After a suitable time delay, whole body imaging images are obtained.FINDINGS:COMPARISON: Multi para metric MRI prostate performed 02/14/2017.Symmetric bilateral renal function is observed.Mild to moderate arthritic changes are noted at the acromioclavicular, glenohumeral, sternoclavicular and hip joints bilaterally. Moderate uptake is noted at approximately the left C4-5 facet versus C5-6 facet. Mild thoracic spondylosis is visible. Mild arthritic changes are present at the medial wrists bilaterally.No lytic or blastic osseous metastatic lesion is observed.IMPRESSION:Negative for evidence of osteoblastic metastasis.PQRS 147: [id number] PELVIS WO/WCLINICAL INDICATION: C61 Malignant neoplasm of prostateMODALITY: Siemens Skyra 3.0 Yary MRITECHNIQUE: T2 sagittal and axial, T1 axial, T1 coronal fat sat, STIR, diffusion and dynamic contrast enh anced imaging are performed. Quantitative analysis is performed with DynaCAD. IV contrast is administered, 15.0 ml Multihance Dynamic post-contrast imaging with DynaCAD quantitative analysis are accomplished.[id number] MR DynaCADIMPRESSION:Moderately large, aggressive appearing lesion is noted at the right lateral apical and mid prostate peripheral zone. Small satellite nodule is seen. This underlies the right neurovascular bundle however there is no evidence of significant extra prostatic malignancy.PI-RADS 5: Highly suspicious for malignancy.FINDINGS:COMPARISON: NoneNormal regional marrow signal is observed. No lytic or blastic osseous metastatic lesions.No common iliac, internal iliac, externaliliac, inguinal or suspicious gabriela-prostatic lymph nodes.Regional bowel appears unremarkable. No mural or intraluminal bladder mass. Anterior abdominal wall and pelvic floor are unremarkable. No evidence of ascites.Estimated prostate volume is 26.7 ml. 1.9 x 1.5 x 1.3 cm lesion is targeted at the right lateral apex, extending to the mid prostate. There is a tiny 0.5 cm apical nodule noted in the paracentral location as well. Both lesions exhibit restricted diffusion. Increased contrast enhancement is observed. The dominant lesion underlies the right neurovascular bundle.Seminal vesicles exhibit normal signal intensity. Neurovascular bundles are symmetric in appearance without definite tumor involvement. The prostate capsule is smooth in contour.
--- OUTSIDE RECORDS SUMMARY | 2019-10-26 08:04 | XMS REPORT | Summary of Care ---
:1950 Author Organization [facility] - Health Address [address] [place] [id number] Care Team Providers Name Role Phone Unavailable Primary Care Provider Unavailable Encounter Details Date Type Department Care Team Description 09/11/2019 Orders Only [facility] Doctor Unassigned, No [address] [facility] [place] [address] [address] [place] [address] Allergies No Known Allergiesdocumented as of this encounter (statuses as of 09/11/2019) Medications Medication Sig Dispensed Refills Start Date End Date Status aspirin 81 mg chewable Take 81 mg by 0 Active tablet mouth daily. rosuvastatin (CRESTOR) 10 Take 20 mg by 0 Active mg tablet mouth at bedtime. amLODIPine (NORVASC) 10 mg Take 1 Tab by 0 6 Active tablet mouth daily. losartan-hydrochlorothiazi Take 1 Tab by 0 6 Active de (HYZAAR) 100-12.5 mg mouth daily. per tablet losartan 100 mg tablet Take 100 mg 0 Active by mouth daily. fluorouracil 5 % cream Apply to 40 g 0 09/28/2016 Active area(s) 2 (two) times daily. For 5 days carvedilol 3.125 mg tablet Take 3.125 mg 0 Active by mouth 2 (two) times daily with meals. hydroCHLOROthiazide 12.5 Take 12.5 mg 0 Active mg tablet by mouth daily. Bifidobacterium infantis Take by 0 Active (ALIGN ORAL) mouth. benzonatate 100 mg Take 1 25 capsule 0 08/29/2018 Active capsuleIndications: capsule by Recurrent cough mouth 3 (three) times daily as needed for Cough. documented as of this encounter (statuses as of 09/11/2019) Active Problems Problem Noted Date Coronary heart disease 04/16/2015 Hyperlipidemia 04/16/2015 Essential hypertension, benign 04/16/2015 Colitis 04/16/2015 documented as of this encounter (statuses as of 09/11/2019) Social History Tobacco Use Types Packs/Day Years Used Date Never Smoker Smokeless Tobacco: Never Used Alcohol Use Drinks/Week oz/Week Comments No Sex Assigned at Date Recorded Not on file Job Start Date Occupation Industry Not on file Not on file Not on file Travel History Travel Start Travel End No recent travel history available. documented as of this encounter Last Filed Vital Signs Not on filedocumented in this encounter Plan of Treatment Health Maintenance Due Date Last Done Comments HEPATITIS C (HCV) SCREEN 1950 DTaP,Tdap,and Td Vaccines (1 - Tdap) 1960 Zoster Recombinant Vaccine (SHINGRIX) (1 of 2) 08/01/1999 Medicare Wellness Visit 2014 PNEUMOCOCCAL VACCINES 65+ (1 of 2 - PCV13) 2014 Depression Screening 09/01/2019 08/31/2018 INFLUENZA VACCINE (Season Ended) 2019 COLONOSCOPY 03/07/2024 03/07/2014 documented as of this encounter Procedures Procedure Name Priority Date/Time Associated Diagnosis Comme nts EXTERNAL PROVIDER Routine 09/11/2019 12:01 AM CDT RECORDS documented in this encounter Results Not on filedocumented in this encounter Insurance Payer Benefit Plan / Subscriber ID Effective Dates Phone Addre ss Type Group MEDICARE MEDICARE PART xxxxxxxxxxx 2014-Felice [phone] Medicare [address] & [address] t [address] [id number] [place] [id number] [facility] [id number] 2012-Felice I ndemnity t documented as of this encounter
[2019-10-26] MEDS ORDERED: Ringers Lactate 1,000 ML IV ONE (08:25)
[2019-10-26] MEDS ORDERED: OXYMETAZOLINE HCL 0.05% 15ML NAS ONE ×2 (08:25→08:53)
[2019-10-26] MEDS ORDERED: NA CHLORIDE 0.9% 500 ML ONE (08:45)
[2019-10-26] MEDS ORDERED: LIDOCAINE 1% W/EPI 1:100,000 MDV 20 ML VIAL ONE (08:45)
[2019-10-26] MEDS ORDERED: FENTANYL CITR 100 MCG/2 ML ONE (09:04)
[2019-10-26] MEDS ORDERED: propofoL 200 MG/20 ML VIAL IV ONE (09:04)
[2019-10-26] MEDS ORDERED: dexAMETHasone 10 MG/ML VIAL ONE (09:04)
[2019-10-26] MEDS ORDERED: ROCURONIUM 50 MG/5 ML VIAL IV ONE (09:04)
[2019-10-26] MEDS ORDERED: MIDAZOLAM HCL 2 MG/2 ML INJ ONE (09:04)
[2019-10-26] MEDS ORDERED: LIDOCAINE 2% MPF 5 ML VIAL ONE (09:04)
[2019-10-26 09:36] LABS: Absolute Lymphocytes (CBC) 1.2 K/uL (0.7-4.9); Basophils % 0.6 % (0-1.3); Hematocrit 33.7 % (39.6-49.0); Lymphocytes % 18.4 % (15.3-44.8); MPV 7.9 fL (7.6-11.3); RBC Red Blood Cell Count 4.03 M/uL (4.33-5.43)
[2019-10-26] MEDS ORDERED: GLYCOPYRROLATE 0.2 MG/ML SYR ONE ×2 (09:42→10:04)
[2019-10-26] MEDS ORDERED: EPHEDRINE SULF 50 MG/ML VIAL ONE (09:45)
[2019-10-26 09:50] LABS: Potassium 3.6 mmol/L (3.5-5.1)
[2019-10-26] MEDS ORDERED: NEOSTIGMINE 1 MG/ML -5 ML ONE (10:04)
--- NOTE | 2019-10-26 10:14 | P.BOP ---
Preoperative diagnosis: cough, PND, left mucous retention cyst Postoperative diagnosis: same Primary procedure: B NE with maxillary antrostomy with L tissue removal Customer Support Agent: NONE,NONE Estimated blood loss: 10ml Specimen: left maxillary sinus content Findings: left cyst, right accessory os Anesthesia: General Complications: None Implants: none, Xerogel dissovable packing Fluids & blood products: crystalloid 750ml Transferred to: Recovery Room Condition: Good
--- NOTE | 2019-10-26 12:16 | OP ---
Date of Procedure: 10/26/2019 Surgeon: Daiana Hearn MD Preoperative Diagnoses: Chronic maxillary sinusitis with left mucocele, chronic cough, and postnasal drainage. Postoperative Diagnoses: Chronic maxillary sinusitis with left mucocele, chronic cough, and postnasa l drainage. Procedure: Left maxillary antrostomy with removal of sinus tissue contents and right maxillary antro stomy. Indication For Procedure: The patient was initially evaluated in December 2018 and treated with reflu x therapy for chronic cough. He was previously taking intranasal steroid spray and oral antihistamin es. He had a CT scan, which demonstrated mucosal edema, LNC obstruction, and left maxillary retentio n cyst. He was treated with maximal medical therapy and underwent revision CT scan in February with no significant radiographic improvements. We discussed surgical options and he was initially monitored with delay of treatment due to COVID-19. On followup, he had continued symptoms and criselda ed to proceed with surgery. He was cleared by his hourly shift and his blood thinners were held for 3 days prior to the procedure. Procedure In Detail: The patient was brought to the operating room. He was placed under general ane sthesia via oral endotracheal tube. The head of bed was turned 90 degrees. The left nasal cavity wa s packed with Afrin-soaked pledgets. After time for effect, the pledgets were removed and a 0-degree endoscope was used to perform a nasal endoscopy. The mucosa was well decongested. The middle meatu s appeared clear from any active drainage or significant mucosal inflammation. The superior attachme nt of the middle turbinate and the uncinate process were injected with 1% lidocaine with epinephrine. A backbiter and 90-degree Blakesley was used to remove the uncinate process. The natural os was en larged using a 90-degree Blakesley and a side biter opening to the right. The 30-degree endoscope wa s used to visualize the maxillary sinus cavity, which was filled approximately 50% with a large cysti c-appearing structure, which was attached on the floor of the sinus. Under 30-degree endoscopic guid ance, the maxillary Heuwieser was passed through the antrostomy and used to grasp the wall of the cys t. A 90-degree Blakesley was used to remove additional portions of the maxillary cyst wall from the antrostomy resulting in complete resolution of the cyst. The 70-degree endoscope was used to obtain a better visualization of the sinus and confirm removal of the cyst wall to the degree visible. Afri n-soaked pledgets were then packed into the middle meatus to aid in hemostasis and attention was turn ed to the right side. The preoperative scan revealed small, likely clinically insignificant mucosal cyst of the very anterior wall and endoscopic findings demonstrated a moderate-sized accessory maxill twyla antrostomy within the uncinate. Due to the risk of mucus recirculation, decision was made to pro ceed with right antrostomy. The uncinate process was removed with a 90-degree Blakesley. The maxill twyla antrum was entered through the natural os and careful evaluation was made to ensure a single open ing, which would preclude or prevent mucus recirculation. The middle meatus was then packed with Afr in-soaked pledgets and allowed to sit for several minutes to aid in hemostasis. All the pledgets wer e removed and the count was confirmed as correct. Nasal endoscopy confirmed no significant oozing fr om the sites; however, due to the patient's need to resume anticoagulation, decision was made to appl y a hemostatic dressing. A XeroGel dissolvable dressing was folded and packed within the left and ri ght middle meatus. The packing was then soaked with saline under endoscopic guidance according to leticia leyva's instructions to allow for maximal effect and to improve dissolution of the packing over t he next 10 days. The nasopharynx was suctioned and the bilateral nasal cavities carefully inspected using a 0-degree endoscope to confirm adequate hemostasis. The scopes were removed and the patient w as returned to care of Anesthesia for awakening and extubation in the operating room, which proceeded without difficulty. Complications: None. Specimens: Left maxillary sinus contents. Disposition: The patient will be discharged home later today in the care of his family and follow up with Dr. Hearn in 10 days for evaluation of healing. Written instructions regarding postoperative care. Resumption of anticoagulants and use of saline irrigations will be given to the patient upon d ischarge. YONATHAN/ASUHTOSH Voice ID: [id number] Report ID: [id number]
[2019-10-26] MEDS ORDERED: ONDANSETRON 4 MG/2 ML VIAL ONE (12:32)
[2019-10-26] MEDS ORDERED: ACETAMINOPHEN 325 MG TABLET ONE (13:50)
[2019-10-26 14:40] VITALS: TEMP 97; O2SAT 98
[2019-10-26 14:41] VITALS: BP 140/50
== END 2019-10-26 15:25 | disposition home or self-care (01) ==
LOC: OR 07:59
PROVIDERS: ATTEND Otolaryngology
PROC: 099Q8ZZ Drainage of Right Maxillary Sinus, Via Natural or Artificial Opening Endoscopic (ICD-10-PCS; 2019-10-26)
PROC: 09BR8ZX Excision of Left Maxillary Sinus, Via Natural or Artificial Opening Endoscopic, Diagnostic (ICD-10-PCS; principal; 2019-10-26 10:00)
DX: J32.0 Chronic maxillary sinusitis (principal); J34.1 Cyst and mucocele of nose and nasal sinus; R05 Cough; K21.9 Gastro-esophageal reflux disease without esophagitis; E78.5 Hyperlipidemia, unspecified; I25.10 Atherosclerotic heart disease of native coronary artery without angina pectoris; Z79.01 Long term (current) use of anticoagulants; Z79.899 Other long term (current) drug therapy; Z95.1 Presence of aortocoronary bypass graft; Z86.718 Personal history of other venous thrombosis and embolism; Z85.820 Personal history of malignant melanoma of skin; Z85.828 Personal history of other malignant neoplasm of skin
CPT/HCPCS: 93005; 85025; 80048; 36415; 88304; 88311; 31267; 31256; J2704; J2250; J3010; J1100; J2710; J7120; J7040; J2405; 88305

== ENCOUNTER 2024-12-28 19:45 | Emergency (ER) | payer BC ==
[2024-12-28] MEDS ORDERED: TRANEXAMIC ACID 1,000 MG/10 ML VIAL IV ONE (20:42)
[2024-12-28] MEDS ORDERED: SILVER NITRATE 1 APPL TOP ONE (22:18)
[2024-12-28] MEDS ORDERED: LIDOCAINE 2% W/EPI 1:200,000 MPF 20 ML VIAL IM ONE (22:30)
--- NOTE | 2024-12-28 22:51 | ER ---
Nurse's Notes [facility] Name: Michael Reinoso Age: 74 yrs Sex: Male : 1950 Arrival Date: 12/28/2024 Time: 19:45 Bed 7 Private MD: Diagnosis: BLEEDING AFTER SURGICAL PROCEDURE;BLEEDING FROM EAR Presentation: 12/28 19:58 Chief complaint: Patient states: PT STATES SHE HAD AN EAR POLYP REMOVED FROM LEFT EAR br2 EARLIER TODAY AND IT HAS BLEEDING EVER SINCE. DENIES PAIN. PT HAS GAUZE IN LEFT EAR AND IS SATURATED WITH BLOOD BUT NOT DRAINING. Coronavirus screen: Client denies travel out of the [place] in the last 14 days. Ebola Screen: Patient denies exposure to infectious person. Initial Sepsis Screen: Does the patient meet any 2 criteria? No. Patient's initial sepsis screen is negative. Does the patient have a suspected source of infection? No. Patient's initial sepsis screen is negative. Risk Assessment: Do you want to hurt yourself or someone else? Patient reports no desire to harm self or others. Onset of symptoms was December 28, 2024 at 16:00. 19:58 Method Of Arrival: Ambulatory br2 19:58 Acuity: DANIELLE 4 br2 Triage Assessment: 19:55 General: Appears in no apparent distress. comfortable, Behavior is calm, cooperative, bm8 appropriate for age. Pain: Complains of pain in left ear Pain currently is 3 out of 10 on a pain scale. EENT: Ear canal w/ bleeding noted from left ear w/ foreign body noted from left ear pt had polyp removed this afternoon, it started bleeding earlier and was told to come to ER.. bloody gauze in left ear. Neuro: Level of Consciousness is awake, alert, obeys commands, Oriented to person, place, time, situation, Appropriate for age. Cardiovascular: Capillary refill < 3 seconds in bilateral Patient's skin is warm and dry. Respiratory: Airway is patent Respiratory effort is even, unlabored, Respiratory pattern is regular, symmetrical. GI: No deficits noted. No signs and/or symptoms were reported involving the gastrointestinal system. : No deficits noted. No signs and/or symptoms were reported regarding the genitourinary system. Derm: No deficits noted. No signs and/or symptoms reported regarding the dermatologic system. Musculoskeletal: No deficits noted. No signs and/or symptoms reported regarding the musculoskeletal system. Historical: - Allergies: 20:53 NKA; bm8 - Home Meds: 20:53 cholestyramine-aspartame Oral 1 packet daily [Active]; bm8 - PMHx: 20:53 Colitis; Hyperlipidemia; Hypertension; bm8 - PSHx: 20:53 Unable to Obtain; bm8 - Immunization history:: Adult Immunizations up to date. - Infectious Disease History:: Denies. - Social history:: Smoking status: Patient denies any tobacco usage or history of. Screenin:59 [facility] ED Fall Risk Assessment (Adult) History of falling in the last 3 months, bm8 including since admission No falls in past 3 months (0 pts) Confusion or Disorientation No (0 pts) Intoxicated or Sedated No (0 pts) Impaired Gait No (0 pts) Mobility Assist Device Used No (0 pt) Altered Elimination No (0 pt) Score/Fall Risk Level 0 - 2 = Low Risk Oriented to surroundings, Maintained a safe environment, Educated pt \T\ family on fall prevention, incl call for assistance when getting out of bed, Assessed \T\ reinforced patient's understanding of fall precautions, Hourly rounding (assess needs \T\ fall precautionary measures) done, Used ambulatory aids as needed (educated on \T\ assisted with), Used gait belt as appropriate. Abuse screen: Denies threats or abuse. Nutritional screening: No deficits noted. Tuberculosis screening: No symptoms or risk factors identified. Assessment: 20:52 Reassessment: Patient appears in no apparent distress at this time. Patient and/or bm8 family updated on plan of care and expected duration. Pain level reassessed. Patient is alert, oriented x 3, equal unlabored respirations, skin warm/dry/pink. pt currently has txa soaked gauze in left ear Patient states feeling better. Patient states symptoms have improved. 21:42 Reassessment: Gauze was removed from ear by doctor, ear noted to still be oozing. at6 Provider to reapply. Vital Signs: 19:58 BP 191 / 78; Pulse 60; Resp 18; Temp 97.1; Pulse Ox 100% ; Weight 77.11 kg; Height 5 br2 ft. 10 in. ; Pain 0/10; 20:21 BP 157 / 161; Pulse 56; Resp 18; Temp 97.1; Pulse Ox 100% ; Pain 3/10; bm8 20:53 BP 166 / 73; Pulse 77; Resp 17; Temp 97.1; Pulse Ox 100% ; Pain 0/10; bm8 22:19 BP 184 / 72; Pulse 61; Resp 17; Temp 97.1; Pulse Ox 100% ; Pain 0/10; at6 19:58 Body Mass Index 24.39 (77.11 kg, 177.8 cm) br2 19:58 Pain Scale: Adult br2 20:21 Pain Scale: Adult bm8 20:53 Pain Scale: Adult bm8 22:19 Pain Scale: Adult at6 Cathi Coma Score: 19:59 Eye Response: spontaneous(4). Motor Response: obeys commands(6). Verbal Response: bm8 oriented(5). Total: 15. 20:53 Eye Response: spontaneous(4). Motor Response: obeys commands(6). Verbal Response: bm8 oriented(5). Total: 15. ED Course: 19:46 Patient arrived in ED. mr 19:55 Miquel Smyth, RN is Primary Nurse. bm8 19:59 Arm band placed on. bm8 19:59 Patient has correct armband on for positive identification. Bed in low position. Call bm8 light in reach. Side rails up X 1. Client placed on continuous cardiac and pulse oximetry monitoring. NIBP monitoring applied. Pulse ox on. NIBP on. Door closed. Noise minimized. Warm blanket given. Pillow given. Verbal reassurance given. Head of bed elevated. 19:59 Patient maintains SpO2 saturation greater than 95% on room air. bm8 20:01 Triage completed. br2 20:02 Renan Conner DO is Attending Physician. tt7 20:53 No provider procedures requiring assistance completed. Patient did not have IV access bm8 during this emergency room visit. 23:03 Provided Education on: dressing changes, follow up instructions, and when to come back at6 for follow up care if condition worsens . Administered Medications: 20:50 Drug: tranexamic acid 200 mg Topical once Route: Topical; Site: wound; bm8 22:59 Drug: Silver Nitrate Applicators Topical 1 application Topical once {Note: Given by Dr. sariah Conner in the L ear canal.} Route: Topical; Site: affected area; 22:59 Drug: Lidocaine-Epinephrine Infiltration -2 % (1:100,000) 10 ml Infiltration once; to at6 bedside {Note: Given by Dr. Conner to L ear canal.} Route: Infiltration; Medication: 19:59 VIS not applicable for this client. bm8 Outcome: 22:50 Discharge ordered by . tt7 23:00 Discharged to home ambulatory, at6 23:00 Condition: stable 23:00 Discharge instructions given to patient, Instructed on discharge instructions, follow up and referral plans. Demonstrated understanding of instructions, follow-up care, 23:04 Patient left the ED. at6 Signatures: Becky Purcell, Reg Reg mr SmythMiquel, RN RN bm8 Kathi Nesbitt, RN RN br2 Renan Conner, DO tt7 Chey Conner, RN RN at6
--- NOTE | 2024-12-28 22:51 | EDPHYS ---
Physician Documentation [facility] Name: Michael Reinoso Age: 74 yrs Sex: Male : 1950 Arrival Date: 12/28/2024 Time: 19:45 Bed 7 Private MD: ED Physician Renan Conner HPI: 12/29 03:15 This 74 yrs old Male presents to ER via Ambulatory with complaints of Post Surgical tt7 Bleeding. 03:15 Patient has been having small amount of oozing from his left external auditory canal tt7 ever since his ENT doctor removed a small polyp earlier today, he has a history of hypertension hyperlipidemia and chronically takes Plavix, he has no hearing changes, no other complaints. Historical: - Allergies: 12/28 20:53 NKA; bm8 - Home Meds: 20:53 cholestyramine-aspartame Oral 1 packet daily [Active]; bm8 - PMHx: 20:53 Colitis; Hyperlipidemia; Hypertension; bm8 - PSHx: 20:53 Unable to Obtain; bm8 - Immunization history:: Adult Immunizations up to date. - Infectious Disease History:: Denies. - Social history:: Smoking status: Patient denies any tobacco usage or history of. ROS: 12/29 03:11 Constitutional: negative for fever. Cardiovascular: negative for chest pain. tt7 Respiratory: negative for shortness of breath. Abdomen/GI: negative for abdominal pain, nausea, vomiting, diarrhea. MS/Extremity: negative for injury and deformity. Skin: negative for rash. Neuro: negative for focal weakness. ENT: Positive for drainage from ear(s), Negative for ear pain, Exam: 03:11 Constitutional: vital signs reviewed, well appearing. Head/Face: normocephalic, tt7 atraumatic. Eyes: no conjunctival injection, anicteric sclerae. Neck: trachea midline, no JVD, no meningismus. Chest/axilla: normal chest wall appearance and motion, nontender, no crepitus. Cardiovascular: regular rate and rhythm, no murmurs, no rubs, no lower extremity edema. Respiratory: normal respiratory effort, no accessory muscle use, lungs CTAB. Back: normal ROM. Skin: warm, dry, intact, normal turgor, normal color, no rash. MS/ Extremity: normal ROM of extremities, no gross deformities. Neuro: alert and oriented with appropriate mental status, normal speech, follows commands, no focal neurologic deficits. Psych: appropriate mood and affect. 03:11 ENT: Small amount of oozing of blood from the left external auditory canal, TM normal, no tenderness, no purulent drainage, no erythema of the external auditory canal Vital Signs: 12/28 19:58 BP 191 / 78; Pulse 60; Resp 18; Temp 97.1; Pulse Ox 100% ; Weight 77.11 kg; Height 5 br2 ft. 10 in. ; Pain 0/10; 20:21 BP 157 / 161; Pulse 56; Resp 18; Temp 97.1; Pulse Ox 100% ; Pain 3/10; bm8 20:53 BP 166 / 73; Pulse 77; Resp 17; Temp 97.1; Pulse Ox 100% ; Pain 0/10; bm8 22:19 BP 184 / 72; Pulse 61; Resp 17; Temp 97.1; Pulse Ox 100% ; Pain 0/10; at6 19:58 Body Mass Index 24.39 (77.11 kg, 177.8 cm) br2 19:58 Pain Scale: Adult br2 20:21 Pain Scale: Adult bm8 20:53 Pain Scale: Adult bm8 22:19 Pain Scale: Adult at6 Cathi Coma Score: 19:59 Eye Response: spontaneous(4). Motor Response: obeys commands(6). Verbal Response: bm8 oriented(5). Total: 15. 20:53 Eye Response: spontaneous(4). Motor Response: obeys commands(6). Verbal Response: bm8 oriented(5). Total: 15. MDM: 20:02 Medical Screening Exam initiated tt7 12/29 03:12 Differential diagnosis: Postsurgical bleeding, ear bleeding. Data reviewed: vital tt7 signs, nurses notes. ED course: Patient with small amount of oozing from site inside his external auditory canal where an ENT physician removed a small polyp earlier today, patient takes Plavix daily, gauze was removed and TXA soaked gauze was applied, held pressure for approximately 30 minutes, this resulted in improved hemostasis but the patient began bleeding again, I then placed Surgicel inside the canal and kept this in place for about 30 minutes, this resulted in significantly improved hemostasis but again there was small amount of rebleeding, I inserted about 5 mL of 2% lidocaine with epinephrine in the external auditory canal and using a silver nitrate applicator cauterize the area of bleeding, this resolved the hemorrhage, I discussed with the patient the importance of calling his ENT physician for very close follow-up appointment, return precautions discussed, after completion of the patient's emergency department evaluation, I do not suspect a life-threatening or disabling process. Patient is medically stable and not in need of emergent medical intervention. I had a detailed discussion with the patient regarding the historical points, exam findings, emergency department evaluation, diagnostic results, and the discharge diagnosis. I instructed the patient on outpatient management of their condition. I discussed the need for outpatient follow-up with a primary care physician. I informed the patient on return precautions, including the need to return to the ED if symptoms do not improve, worsen, or if there are any questions or concerns that arise at home. The patient was discharged in stable condition. 12/28 20:06 Order name: Vital Signs; Complete Time: 20:20 tt7 Administered Medications: 12/28 20:50 Drug: tranexamic acid 200 mg Topical once Route: Topical; Site: wound; bm8 22:59 Drug: Silver Nitrate Applicators Topical 1 application Topical once {Note: Given by Dr. sariah Conner in the L ear canal.} Route: Topical; Site: affected area; 22:59 Drug: Lidocaine-Epinephrine Infiltration -2 % (1:100,000) 10 ml Infiltration once; to at6 bedside {Note: Given by Dr. Conner to L ear canal.} Route: Infiltration; Disposition: 12/29 03:15 Co-signature as Attending Physician, Renan Conner DO. tt7 Disposition Summary: 12/28/24 22:50 Discharge Ordered Notes: Location: Home tt7 Problem: new tt7 Symptoms: are resolved tt7 Condition: Stable tt7 Diagnosis - BLEEDING AFTER SURGICAL PROCEDURE tt7 - BLEEDING FROM EAR tt7 Followup: tt7 - With: Emergency Department - When: As needed - Reason: Followup: tt7 - With: Private Physician - When: 1 - 2 days - Reason: Recheck today's complaints, Continuance of care, Re-evaluation by your physician Discharge Instructions: - Discharge Summary Sheet tt7 - Hypertension, Adult, [id number] tt7 Forms: - Medication Reconciliation Form tt7 - Antibiotic Education tt7 - Prescription Opioid Use tt7 - Patient Portal Instructions tt7 - Leadership Thank You Letter tt7 Signatures: Miquel Smyth, RN RN bm8 Renan Conner DO DO tt7 Chey Conner, RN RN at6
[2024-12-29 06:44] VITALS: TEMP 97.1; O2SAT 100
[2024-12-29 06:48] VITALS: BP 184/72
== END 2024-12-28 23:04 | disposition home or self-care (01) ==
LOC: ER 19:45
DX: H95.41 Postprocedural hemorrhage of ear and mastoid process following a procedure on the ear and mastoid process (principal)
CPT/HCPCS: 99284